=== PATIENT | female | born 1990 | race Caucasian/White ===

== ENCOUNTER 2025-04-08 22:20 | Emergency (ER) | payer OTHER ==
[2025-04-08 23:00] LABS: APPEARANCE,URINE CLEAR (CLEAR); GLUCOSE,URINE NEGATIVE (NEGATIVE); OCCULT BLOOD,URINE MODERATE (NEGATIVE)
[2025-04-08 23:12] LABS: EPITHELIAL CELLS,URINE FEW /LPF; OTHER CRYSTALS,URINE RARE /HPF
[2025-04-08] MEDS: Nitrofurantoin Monohydrate/Macrocrystalline 100 MG Cap PO ONE (23:35)
== END 2025-04-08 23:45 | disposition home or self-care (01) ==
LOC: KA.ED 22:25
DX: O20.0 Threatened abortion (principal); N30.01 Acute cystitis with hematuria; Z79.899 Other long term (current) drug therapy; Z3A.15 15 weeks gestation of pregnancy
CPT/HCPCS: 36415; 81001; 84702; 87086; 99284; A9270-GY